=== PATIENT | female | born 1990 | race Caucasian/White ===

== ENCOUNTER 2020-08-10 20:21 | Observation (INO) ==
[2020-08-10] MEDS ORDERED: SODIUM CHLORIDE 0.9% 1000ML 1,000 ML IV ONE (20:44)
[2020-08-10] MEDS ORDERED: KETOROLAC TROMETHAMINE 15 MG/ML VIAL IV STA (21:03)
[2020-08-10] MEDS ORDERED: ACETAMINOPHEN 1,000 MG/100 ML VIAL IV STA (21:03)
[2020-08-10 21:10] LABS: Appearance Urine Clear (Clear); Bilirubin Urine Negative (Negative); Blood Urine Negative (Negative); Color Urine Yellow; Glucose Urine UA Negative (Negative); Ketones Urine 1+ (Negative); Leukocyte Esterase Urine Negative (Negative); Nitrite Urine Negative (Negative); Protein Urine Negative (Negative); Specific Gravity Urine 1.017 (1.000-1.030); Urobilinogen Urine Negative (Negative)
[2020-08-10 21:10] LABS: Basophils # (auto) 0.02 K/uL (0-0.2); Basophils % (auto) 0.2 %; Eosinophils # (auto) 0.08 K/uL (0-0.5); Eosinophils % (auto) 0.6 %; Hematocrit (blood only) 38.6 % (37-47); Hemoglobin 13.4 g/dL (12.0-16.0); Immature Granulocytes # (auto) 0.03 K/uL (0.00-0.02); Immature Granulocytes % (auto) 0.2 %; Lymphocytes # (auto) 2.57 K/uL (1.2-3.4); Lymphocytes % (auto) 19.8 %; Mean Corpuscular Hemoglobin 31.1 pg (25-34); Mean Corpuscular Hgb Conc 34.7 g/dL (32-36); Mean Corpuscular Volume 89.6 fL (80-100); Mean Platelet Volume 10.2 fL (7.4-10.4); Monocytes # (auto) 0.78 K/uL (0.11-0.59); Neutrophils # (auto) 9.48 K/uL (1.4-6.5); Neutrophils % (auto) 73.2 %; Platelet Count 318 K/uL (130-400); RDW Coefficient of Variation 11.9 % (11.5-14.5); Red Blood Count 4.31 M/uL (4.2-5.4); White Blood Count 12.96 K/uL (4.8-10.8)
[2020-08-10 21:25] LABS: Albumin Level 4.2 gm/dl (3.4-5.0); BUN Creatinine Ratio 16.7 (10-20); Bilirubin Direct 0.2 mg/dl (0-0.2); Calcium 9.5 mg/dl (8.5-10.1); Creatinine Clr Calc Pharmacy 90.6 ml/min; Est GFR (African American) 106.6; Est GFR (Non-African American) 91.9; Potassium 3.9 mmol/L (3.5-5.1); Pregnancy Test, Serum Negative (Negative)
[2020-08-10 21:27] LABS: Albumin Globulin Ratio 1.2 (0.9-2); Bilirubin,Total 0.8 mg/dl (0.2-1); Globulin 3.6 gm/dl (2.5-4.0); Total Protein 7.8 gm/dl (6.4-8.2)
[2020-08-10] MEDS ORDERED: MoRPHine SULFATE 4 MG/ML 1 ML CARP\\VIAL IV STA (22:47)
[2020-08-10] MEDS ORDERED: IOVERSOL 100ml IV ONE (23:32)
--- NOTE | 2020-08-10 23:43 | Emergency Department Note ---
Impression & Plan Intra-abdominal fluid collection, Abdominal pain, Tenderness of female pelvic organs ED Provider Note NAME: CINTHYA CURRY AGE: 30 SEX: F ARRIVES VIA: Walk-In INFORMANT: Patient, ED PROVIDER(S): Sathya Beaver MD CHIEF COMPLAINT: Abdominal pain PLAN: Disposition: Admit MEDICAL DECISION MAKING: The patient is a 30-year-old woman who presents emergency department with complaints of lower abdominal pain but with also more generalized pain that began this morning which she thought was gas but not improved even after moving her bowels with episodes of spasm where she feels her pain was so severe that she passed out briefly in her mother's arms. She does admit to having premenstrual pain with her menstrual cycle but denies ever having pain this severe. Her last menstrual cycle was several weeks ago. She denies concerns for . Prior to today she denies any fevers, chills, cough, congestion, nausea, vomiting, diarrhea, urinary symptoms. She does report the pain gets worse when lying flat and feels better when she stands up. On arrival the patient is uncomfortable and mild pain distress, afebrile with heart rate in the 100s and otherwise with stable vital signs. She appears clinically dry. Her abdominal exam is limited due to her inability to lie flat due to the pain where she begins to hyperventilate. Feels she is able to give her self relief by standing up. Abdominal exam with the patient sitting does reveal generalized abdominal tenderness greatest in the lower abdomen without guarding or rebound. WBC 12.9 is nonspecific. H/H and platelets within normal limits. Chemistry without metabolic acidosis. Electrolytes LFTs unremarkable. Lipase within normal limits. Qualitative serum hCG negative. UA without evidence of infection. CT done pelvis was ordered and unfortunately due to the patient's pain particularly when lying supine despite receiving IV Tylenol and Toradol was too much for her to tolerate the scan. She was subsequently medicated with IV morphine which did allow her to tolerate the CT scan. I did review the CT results with the [facility] radiologist, Dr. Watkins. Moderate-la rge free fluid with dense material in the pelvis, possible hemorrhagic or proteinaceous material with rim enhancing structure in the right adnexa with wall defect. Given negative hcg ruptured hemorrhagic cyst most likely. Patient previously was seen by [facility] in the past and so case was reviewed with Dr. Ruth Vu Career Guidance Counselor on-call who reviewed images and evaluated the patient at the beside with plan for admission and possible OR if H/H change. Patient was in agreeament with plan. I updated her over the phone. Triage Nursing notes reviewed and agree them. Prior medical records reviewed Vital Signs: reviewed and remarkable for Tachycardia. Differential diagnosis: Appendicitis, ovarian cyst, ovarian torsion, ectopic , TOA, PID, infections, diverticulitis, UTI, obstruction, mesenteric ischemia, aortic pathology, inflammatory bowel disease, renal colic, PUD, pancreatitis, biliary pathology, hernia, volvulus, constipation, as well as other pathologies. ER treatment provided: See below. Diagnostics interpreted by me: ECG: Sinus tachycardia, 107 bpm, no ectopy, no overt ST elevation or depression. Cardiac Monitoring: An order for continuous cardiac monitoring was placed and demonstrated Sinus tachycardia, 107 bpm, no ectopy. Laboratory studies: See below Imaging studies: CXR: Negative for acute cardiopulmonary process per my preliminary review. [facility] Preliminary Findings Only See Final Report For Complete Findings CT ABDOMEN & PELVIS With Contrast: Moderate-large free fluid with dense material in the pelvis, possible hemorrhagic or proteinaceous material. Rim enhancing structure in the right adnexa with wall defect, raising possibility of a ruptured hemorrhagic cyst. Other etiologies not excluded. Correlate with test to exclude possibility of ruptured ectopic. Fluid and air in the small bowel, query ileus or enteritis. Visualized portions of the appendix appear normal in caliber. Mildly thickened underdistended bladder. Radiologist: Gabrielle Watkins M.D. Study ready at 23:37 and initial results transmitted at 23:47 Consultation(s): Dr. Ruth Vu Career Guidance Counselor on-call HPI: The patient is a 30-year-old woman who presents emergency department with complaints of lower abdominal pain but with also more generalized pain that began this morning which she thought was gas but not improved even after moving her bowels with episodes of spasm where she feels her pain was so severe that she passed out briefly in her mother's arms. She does admit to having premenstrual pain with her menstrual cycle but denies ever having pain this severe. Her last menstrual cycle was several weeks ago. She denies concerns for . Prior to today she denies any fevers, chills, cough, congestion, nausea, vomiting, diarrhea, urinary symptoms. She does report the pain gets worse when lying flat and feels better when she stands up. ROS: See above HPI for pertinent positives & negatives. A total of 10 systems reviewed and were otherwise negative. PAST MEDICAL HISTORY:See Below PAST SURGICAL HISTORY:See Below FAMILY HISTORY:See Below SOCIAL HISTORY:See Below HOME MEDICATIONS:See Below ALLERGIES:See Below VITALS:See Below PHYSICAL EXAMINATION: GENERAL: Awake, alert, uncomfortable-appearing, in mild pain distress HENT: Normocephalic, atraumatic. Oropharynx with dry mucous membranes and otherwise unremarkable. EYES: Normal conjunctiva. Sclera non-icteric. NECK: Supple. No nuchal rigidity. FROM. No JVD. RESPIRATORY: Clear to auscultation. CARDIAC: Tachycardic rate, normal rhythm. Extremities warm and well perfused. Pulses equal. ABDOMEN: Abdominal exam with the patient sitting does reveal generalized abdominal tenderness greatest in the lower abdomen without guarding or rebound. RECTAL: Deferred. MUSCULOSKELETAL: Chest examination reveals no tenderness. The back is symmetrical on inspection without obvious abnormality. There is no CVA tenderness to palpation. No joint edema. LOWER EXTREMITIES: Calves are equal size bilaterally and non-tender. No edema. No discoloration. NEURO: Normal sensorium. No sensory or motor deficits noted. SKIN: No rash or jaundice noted. ED COURSE: Critical Care: I have personally spent greater than 35 minutes of critical care time in the direct management of this patient. This includes bedside care, interpretation of diagnostic studies, and testing, discussion with consultants, patient, and family members, and other required patient management activities. This 35 minutes is in excess of all separately billable procedures. Sathya Beaver MD Past Med/Surg History Medical History No significant past medical history Surgical History No significant past surgical history Social History Smoking Status: Former smoker Feels Safe at Home: Yes Allergies Allergies Allergy/AdvReac Type Severity Reaction Status Date / Time No Known Allergies Allergy Unverified 08/10/20 21:56 Home Meds Home Medications Medication Instructions Recorded Confirmed cholecalciferol (vitamin D3) 75 mcg PO DAILY 08/10/20 08/10/20 [Vitamin D3] ibuprofen 400 mg PO Q6H PRN 08/10/20 08/10/20 Results & Data (ED) Vital Signs Vital Signs - 24 hr 08/10/20 20:21 08/10/20 20:22 08/10/20 21:20 Temperature 36.6 C Temperature Source Oral Pulse Rate 90 100 H 101 H Pulse Rhythm Regular Respiratory Rate 19 16 Respiratory Effort / Characteristics Non-Labored Respiratory Depth Normal Blood Pressure 115/79 135/99 Blood Pressure Mean 91 103 Pulse Oximetry 99 100 99 Oxygen Delivery Method Room Air Room Air Sepsis Recent Fever Within 48 Hours No Sepsis New/Unexplained Change in Mental Status No Sepsis Action Taken by Nursing No Action Required 08/10/20 21:30 08/10/20 21:40 08/10/20 22:40 Temperature Temperature Source Pulse Rate 115 H 86 98 H Pulse Rhythm Respiratory Rate 16 16 16 Respiratory Effort / Characteristics Respiratory Depth Blood Pressure 127/92 127/99 Blood Pressure Mean 103 103 Pulse Oximetry 96 100 100 Oxygen Delivery Method Sepsis Recent Fever Within 48 Hours Sepsis New/Unexplained Change in Mental Status Sepsis Action Taken by Nursing 08/10/20 23:00 Temperature Temperature Source Pulse Rate 93 H Pulse Rhythm Respiratory Rate 19 Respiratory Effort / Characteristics Respiratory Depth Blood Pressure 123/91 Blood Pressure Mean 95 Pulse Oximetry 100 Oxygen Delivery Method Sepsis Recent Fever Within 48 Hours Sepsis New/Unexplained Change in Mental Status Sepsis Action Taken by Nursing Laboratory Data Attestation: I reviewed the patient's lab results. Result diagrams: 08/11/20 00:32 08/10/20 20:42 Lab Results 08/10/20 08/10/20 08/10/20 Range/Units 20:12 20:42 20:42 WBC 12.96 H (4.8-10.8) K/uL RBC 4.31 (4.2-5.4) M/uL Hgb 13.4 (12.0-16.0) g/dL Hct 38.6 (37-47) % MCV 89.6 (80-100) fL MCH 31.1 (25-34) pg MCHC 34.7 (32-36) g/dL RDW Std Deviation 39.0 (36.4-46.3) fL RDW Coeff of [place] 11.9 (11.5-14.5) % Plt Count 318 (130-400) K/uL MPV 10.2 (7.4-10.4) fL Immature Gran % (Auto) 0.2 % Neut % (Auto) 73.2 % Lymph % (Auto) 19.8 % [place] % (Auto) 6.0 % Eos % (Auto) 0.6 % Baso % (Auto) 0.2 % Neut # (Auto) 9.48 H (1.4-6.5) K/uL Lymph # (Auto) 2.57 (1.2-3.4) K/uL [place] # (Auto) 0.78 H (0.11-0.59) K/uL Eos # (Auto) 0.08 (0-0.5) K/uL Baso # (Auto) 0.02 (0-0.2) K/uL Immature Gran # (Auto) 0.03 H (0.00-0.02) K/uL Sodium 135 L (136-145) mmol/L Potassium 3.9 (3.5-5.1) mmol/L Chloride 104 (98-107) mmol/L Carbon Dioxide 23 (21-32) mmol/L Anion Gap 8.0 (3-11) BUN 14 (7-18) mg/dl Creatinine 0.85 (0.6-1.2) mg/dl Est Cr Clr Drug Dosing 90.6 ml/min Est GFR ( Amer) 106.6 Est GFR (Non-Af Amer) 91.9 BUN/Creatinine Ratio 16.7 (10-20) Glucose 117 H (70-99) mg/dl Calcium 9.5 (8.5-10.1) mg/dl Total Bilirubin 0.8 (0.2-1) mg/dl Direct Bilirubin 0.2 (0-0.2) mg/dl AST 17 (15-37) U/L ALT 27 (12-78) U/L Alkaline Phosphatase 51 (45-117) U/L Total Protein 7.8 (6.4-8.2) gm/dl Albumin 4.2 (3.4-5.0) gm/dl Globulin 3.6 (2.5-4.0) gm/dl Albumin/Globulin Ratio 1.2 (0.9-2) Lipase 136 (73-393) U/L HCG, Qual (Negative) Urine Color Yellow Urine Appearance Clear (Clear) Urine pH 5.0 (4.5-7.5) Ur Specific [place] 1.017 (1.000-1.030) Urine Protein Negative (Negative) Urine Glucose (UA) Negative (Negative) Urine Ketones 1+ H (Negative) Urine Blood Negative (Negative) Urine Nitrite Negative (Negative) Urine Bilirubin Negative (Negative) Urine Urobilinogen Negative (Negative) Ur Leukocyte Esterase Negative (Negative) COVID-19 Eval Order SARS-CoV-2 (PCR) (Negative) Influenza Type A (PCR) (Neg) Influenza Type B (PCR) (Neg) RSV (RT-PCR) (Neg) Blood Type Antibody Screen 08/10/20 08/10/20 08/11/20 Range/Units 20:42 23:52 00:32 WBC (4.8-10.8) K/uL RBC (4.2-5.4) M/uL Hgb 10.1 L D (12.0-16.0) g/dL Hct 29.2 L (37-47) % MCV (80-100) fL MCH (25-34) pg MCHC (32-36) g/dL RDW Std Deviation (36.4-46.3) fL RDW Coeff of Geovany (11.5-14.5) % Plt Count (130-400) K/uL MPV (7.4-10.4) fL Immature Gran % (Auto) % Neut % (Auto) % Lymph % (Auto) % [place] % (Auto) % Eos % (Auto) % Baso % (Auto) % Neut # (Auto) (1.4-6.5) K/uL Lymph # (Auto) (1.2-3.4) K/uL [place] # (Auto) (0.11-0.59) K/uL Eos # (Auto) (0-0.5) K/uL Baso # (Auto) (0-0.2) K/uL Immature Gran # (Auto) (0.00-0.02) K/uL Sodium (136-145) mmol/L Potassium (3.5-5.1) mmol/L Chloride (98-107) mmol/L Carbon Dioxide (21-32) mmol/L Anion Gap (3-11) BUN (7-18) mg/dl Creatinine (0.6-1.2) mg/dl Est Cr Clr Drug Dosing ml/min Est GFR ( Amer) Est GFR (Non-Af Amer) BUN/Creatinine Ratio (10-20) Glucose (70-99) mg/dl Calcium (8.5-10.1) mg/dl Total Bilirubin (0.2-1) mg/dl Direct Bilirubin (0-0.2) mg/dl AST (15-37) U/L ALT (12-78) U/L Alkaline Phosphatase (45-117) U/L Total Protein (6.4-8.2) gm/dl Albumin (3.4-5.0) gm/dl Globulin (2.5-4.0) gm/dl Albumin/Globulin Ratio (0.9-2) Lipase (73-393) U/L HCG, Qual Negative (Negative) Urine Color Urine Appearance (Clear) Urine pH (4.5-7.5) Ur Specific [place] (1.000-1.030) Urine Protein (Negative) Urine Glucose (UA) (Negative) Urine Ketones (Negative) Urine Blood (Negative) Urine Nitrite (Negative) Urine Bilirubin (Negative) Urine Urobilinogen (Negative) Ur Leukocyte Esterase (Negative) COVID-19 Eval Order SARS-CoV-2 (PCR) (Negative) Influenza Type A (PCR) (Neg) Influenza Type B (PCR) (Neg) RSV (RT-PCR) (Neg) Blood Type O Positive Antibody Screen NEGATIVE 08/11/20 08/11/20 Range/Units 01:00 01:00 WBC (4.8-10.8) K/uL RBC (4.2-5.4) M/uL Hgb (12.0-16.0) g/dL Hct (37-47) % MCV (80-100) fL MCH (25-34) pg MCHC (32-36) g/dL RDW Std Deviation (36.4-46.3) fL RDW Coeff of Geovany (11.5-14.5) % Plt Count (130-400) K/uL MPV (7.4-10.4) fL Immature Gran % (Auto) % Neut % (Auto) % Lymph % (Auto) % [place] % (Auto) % Eos % (Auto) % Baso % (Auto) % Neut # (Auto) (1.4-6.5) K/uL Lymph # (Auto) (1.2-3.4) K/uL [place] # (Auto) (0.11-0.59) K/uL Eos # (Auto) (0-0.5) K/uL Baso # (Auto) (0-0.2) K/uL Immature Gran # (Auto) (0.00-0.02) K/uL Sodium (136-145) mmol/L Potassium (3.5-5.1) mmol/L Chloride (98-107) mmol/L Carbon Dioxide (21-32) mmol/L Anion Gap (3-11) BUN (7-18) mg/dl Creatinine (0.6-1.2) mg/dl Est Cr Clr Drug Dosing ml/min Est GFR ( Amer) Est GFR (Non-Af Amer) BUN/Creatinine Ratio (10-20) Glucose (70-99) mg/dl Calcium (8.5-10.1) mg/dl Total Bilirubin (0.2-1) mg/dl Direct Bilirubin (0-0.2) mg/dl AST (15-37) U/L ALT (12-78) U/L Alkaline Phosphatase (45-117) U/L Total Protein (6.4-8.2) gm/dl Albumin (3.4-5.0) gm/dl Globulin (2.5-4.0) gm/dl Albumin/Globulin Ratio (0.9-2) Lipase (73-393) U/L HCG, Qual (Negative) Urine Color Urine Appearance (Clear) Urine pH (4.5-7.5) Ur Specific [place] (1.000-1.030) Urine Protein (Negative) Urine Glucose (UA) (Negative) Urine Ketones (Negative) Urine Blood (Negative) Urine Nitrite (Negative) Urine Bilirubin (Negative) Urine Urobilinogen (Negative) Ur Leukocyte Esterase (Negative) COVID-19 Eval Order CovFluRsv at [facility] SARS-CoV-2 (PCR) NEGATIVE (Negative) Influenza Type A (PCR) Negative (Neg) Influenza Type B (PCR) Negative (Neg) RSV (RT-PCR) Negative (Neg) Blood Type Antibody Screen Administered Medications Discontinued Medications Sodium Chloride (Nss 1000ml) 1,000 mls @ 999 mls/hr IV .Q1H1M ONE Stop: 08/10/20 21:44 Last Infusion: 08/10/20 22:32 Dose: 0 mls/hr Documented by: [id number] Admin: 08/10/20 21:12 Dose: 999 mls/hr Documented by: [id number] Acetaminophen (Ofirmev) 1,000 mg in 100 mls @ 400 mls/hr IV NOW STA Stop: 08/10/20 21:17 Last Infusion: 08/10/20 21:46 Dose: 0 mls/hr Documented by: [id number] Admin: 08/10/20 21:12 Dose: 400 mls/hr Documented by: [id number] Sodium Chloride (Nss 1000ml) 1,000 mls @ 125 mls/hr IV .Q8H DANNIE Stop: 09/10/20 00:29 Last Admin: 08/11/20 00:34 Dose: 125 mls/hr Documented by: [id number] Cefazolin Sodium (Ancef 2000mg) 2,000 mg in 15 mls @ 3.75 mls/min IV NOW STA Stop: 08/11/20 01:12 Last Admin: 08/11/20 02:40 Dose: 3.75 mls/min Documented by: [id number] Ioversol (Ioversol 100ml) 92 ml IV ONCE ONE Stop: 08/10/20 23:33 Last Admin: 08/10/20 23:32 Dose: 92 ml Documented by: [id number] Ketorolac Tromethamine (Ketorolac Tromethamine 15 Mg/Ml Vial) 15 mg IV NOW STA Stop: 08/10/20 21:04 Last Admin: 08/10/20 21:11 Dose: 15 mg Documented by: [id number] Morphine Sulfate (Morphine Sulfate 4 Mg/Ml 1 Ml Carp\Vial) 4 mg IV NOW STA Stop: 08/10/20 22:48 Last Admin: 08/10/20 22:51 Dose: 4 mg Documented by: [id number] Morphine Sulfate (Morphine Sulfate 4 Mg/Ml 1 Ml Carp\Vial) 4 mg IV Q2H PRN PRN Reason: Pain Stop: 08/25/20 00:16 Last Admin: 08/11/20 00:34 Dose: 4 mg Documented by: [id number] Ondansetron HCl (Ondansetron Inj 2 Mg/Ml 2 Ml Vial) 4 mg IV NOW STA Stop: 08/11/20 00:18 Last Admin: 08/11/20 00:34 Dose: 4 mg Documented by: [id number] Discharge Plan Visit Data Chief Complaint: Abdominal Pain Stated Complaint: ABD PAIN ED Provider: Sathya Beaver Discharge Problem: Intra-abdominal fluid collection, Abdominal pain, Tenderness of female pelvic organs Patient Disposition: Admitted As Inpatient Discharge Instructions Interventions: ED Discharge Assessment Last Done: 08/11/20 02:00 Discharge Problem: Abdominal pain Qualifiers: Abdominal location: generalized Qualified Code(s): R10.84 - Generalized abdominal pain
[2020-08-11] MEDS ORDERED: MoRPHine SULFATE 4 MG/ML 1 ML CARP\\VIAL IV PRN (00:17)
[2020-08-11] MEDS ORDERED: ONDANSETRON INJ 2 MG/ML 2 ML VIAL IV STA (00:17)
[2020-08-11] MEDS ORDERED: SODIUM CHLORIDE 0.9% 1000ML 1,000 ML IV SCH (00:30)
--- NOTE | 2020-08-11 00:42 | OB/GYN Consultation ---
Date of Consultation August 11, 2020 Assessment & Plan (1) Abdominal pain: 30-year-old G0 female with abdominal and pelvic pain and lightheadedness with ambulation. Vital signs stable afebrile CT of abdomen suggesting fluid collection in the pelvis and abdomen suggesting hemorrhagic corpus luteum cyst H&H drop in 4 hours and patient is symptomatic upon ambulation and had acute abdomen Given their history, physical findings and drop in H&H and large amount of fluid in pelvis and abdomen for CT scan I recommended her surgical exploration for hemorrhagic corpus luteum cyst. Recommended procedure as examined under anesthesia, operative laparoscopy, suction of blood clots from pelvis, possible fulguration/coagulation of hemorrhagic ovarian cysts and possible oophorectomy. Patient understands our goal is to save both ovaries but may need oophorectomy if bleeding persists. Patient understands the risk of surgery including risk of anesthesia, bleeding, infection, injury to surrounding organs like bowels, bladder, ureters and more surgeries to correct complications. She signed an informed consent. (2) Tenderness of female pelvic organs: (3) Intra-abdominal fluid collection: History of Present Illness History of Present Illness Patient is a 30-year-old G0 female who presented to the ER with diffuse abdominal pain started yesterday morning at around 9 AM. It started as lower abdominal /pelvic pain and then it went up all over the abdomen. It is sharp and gets worse with movement and laying down and it can be up to 10 out of 10 in intensity. It causes upper abdominal pain under ribs when she takes deep breath. She has been dizzy with lightheadedness when she stood up. She states she passed out twice. Nausea+ She gets regular periods every month. They last for 3 days and she has severe pain for 1 day. She had it 3 weeks ago, now in luteal phase of her cycle. She has been sexually active with same partner for 4 years and they have been using condoms only for contraception. Never failed and never been . Last SI was 3 nights ago. No history of STDs. She denies h/o pelvic pain vaginal discharge or itching. No fever/ chills/ CP/SOB She had CT scan here which showed moderate to large amount of fluid collection in pelvis and abdomen and rim-enhancing ovarian cyst suggesting hemorrhagic corpus luteum cyst. Her H&H was stable on admission. She is getting a repeat one now. Allergies Allergy/AdvReac Type Severity Reaction Status Date / Time No Known Allergies Allergy Unverified 08/10/20 21:56 Home Medications Medication Instructions Recorded Confirmed Type cholecalciferol (vitamin D3) 75 mcg PO DAILY 08/10/20 08/10/20 History [Vitamin D3] ibuprofen 400 mg PO Q6H PRN 08/10/20 08/10/20 History Patient History Social History Smoking Status: Former smoker Feels Safe at Home: Yes Review of Systems Review of Systems: All systems reviewed & are unremarkable except as noted in HPI & below Physical Exam Constitutional: WD/WN, vitals as above well developed, well nourished and + in distress (with pain and light headed with standing.) Gastrointestinal (Abdomen): Inspection/Auscultation: abdomen normal to inspection Percussion/Palpation: + abdomen tender (diffuse tenderness,more on RLQ and RUQ ), + guarding, + abdomen rigid (on RUQ) and abdomen soft Genitourinary: no vaginal lesions, no adnexal mass normal external appearance Speculum/Bimanual Exam: normal appearance of the vagina, normal appearance of the cervix, + cervical tenderness (CMT present), + abnormal adnexa, + adnexal tenderness, + cervical motion tenderness and + adnexae not mobile Results & Data (MN) Vital Signs (Past 12 Hours) Vital Signs Temp Pulse Resp BP Pulse Ox 08/10/20 23:00 93 H 19 123/91 100 08/10/20 22:40 98 H 16 127/99 100 08/10/20 21:40 86 16 100 08/10/20 21:30 115 H 16 127/92 96 08/10/20 21:20 101 H 16 135/99 99 08/10/20 20:22 36.6 C 100 H 19 115/79 100 08/10/20 20:21 90 99 Laboratory Results Lab Results 08/10/20 08/10/20 08/10/20 Range/Units 20:12 20:42 20:42 WBC 12.96 H (4.8-10.8) K/uL RBC 4.31 (4.2-5.4) M/uL Hgb 13.4 (12.0-16.0) g/dL Hct 38.6 (37-47) % MCV 89.6 (80-100) fL MCH 31.1 (25-34) pg MCHC 34.7 (32-36) g/dL RDW Std Deviation 39.0 (36.4-46.3) fL RDW Coeff of Geovany 11.9 (11.5-14.5) % Plt Count 318 (130-400) K/uL MPV 10.2 (7.4-10.4) fL Immature Gran % (Auto) 0.2 % Neut % (Auto) 73.2 % Lymph % (Auto) 19.8 % [place] % (Auto) 6.0 % Eos % (Auto) 0.6 % Baso % (Auto) 0.2 % Neut # (Auto) 9.48 H (1.4-6.5) K/uL Lymph # (Auto) 2.57 (1.2-3.4) K/uL [place] # (Auto) 0.78 H (0.11-0.59) K/uL Eos # (Auto) 0.08 (0-0.5) K/uL Baso # (Auto) 0.02 (0-0.2) K/uL Immature Gran # (Auto) 0.03 H (0.00-0.02) K/uL Sodium 135 L (136-145) mmol/L Potassium 3.9 (3.5-5.1) mmol/L Chloride 104 (98-107) mmol/L Carbon Dioxide 23 (21-32) mmol/L Anion Gap 8.0 (3-11) BUN 14 (7-18) mg/dl Creatinine 0.85 (0.6-1.2) mg/dl Est Cr Clr Drug Dosing 90.6 ml/min Est GFR ( Amer) 106.6 Est GFR (Non-Af Amer) 91.9 BUN/Creatinine Ratio 16.7 (10-20) Glucose 117 H (70-99) mg/dl Calcium 9.5 (8.5-10.1) mg/dl Total Bilirubin 0.8 (0.2-1) mg/dl Direct Bilirubin 0.2 (0-0.2) mg/dl AST 17 (15-37) U/L ALT 27 (12-78) U/L Alkaline Phosphatase 51 (45-117) U/L Total Protein 7.8 (6.4-8.2) gm/dl Albumin 4.2 (3.4-5.0) gm/dl Globulin 3.6 (2.5-4.0) gm/dl Albumin/Globulin Ratio 1.2 (0.9-2) Lipase 136 (73-393) U/L HCG, Qual (Negative) Urine Color Yellow Urine Appearance Clear (Clear) Urine pH 5.0 (4.5-7.5) Ur Specific [place] 1.017 (1.000-1.030) Urine Protein Negative (Negative) Urine Glucose (UA) Negative (Negative) Urine Ketones 1+ H (Negative) Urine Blood Negative (Negative) Urine Nitrite Negative (Negative) Urine Bilirubin Negative (Negative) Urine Urobilinogen Negative (Negative) Ur Leukocyte Esterase Negative (Negative) 08/10/20 Range/Units 20:42 WBC (4.8-10.8) K/uL RBC (4.2-5.4) M/uL Hgb (12.0-16.0) g/dL Hct (37-47) % MCV (80-100) fL MCH (25-34) pg MCHC (32-36) g/dL RDW Std Deviation (36.4-46.3) fL RDW Coeff of Geovany (11.5-14.5) % Plt Count (130-400) K/uL MPV (7.4-10.4) fL Immature Gran % (Auto) % Neut % (Auto) % Lymph % (Auto) % [place] % (Auto) % Eos % (Auto) % Baso % (Auto) % Neut # (Auto) (1.4-6.5) K/uL Lymph # (Auto) (1.2-3.4) K/uL [place] # (Auto) (0.11-0.59) K/uL Eos # (Auto) (0-0.5) K/uL Baso # (Auto) (0-0.2) K/uL Immature Gran # (Auto) (0.00-0.02) K/uL Sodium (136-145) mmol/L Potassium (3.5-5.1) mmol/L Chloride (98-107) mmol/L Carbon Dioxide (21-32) mmol/L Anion Gap (3-11) BUN (7-18) mg/dl Creatinine (0.6-1.2) mg/dl Est Cr Clr Drug Dosing ml/min Est GFR ( Amer) Est GFR (Non-Af Amer) BUN/Creatinine Ratio (10-20) Glucose (70-99) mg/dl Calcium (8.5-10.1) mg/dl Total Bilirubin (0.2-1) mg/dl Direct Bilirubin (0-0.2) mg/dl AST (15-37) U/L ALT (12-78) U/L Alkaline Phosphatase (45-117) U/L Total Protein (6.4-8.2) gm/dl Albumin (3.4-5.0) gm/dl Globulin (2.5-4.0) gm/dl Albumin/Globulin Ratio (0.9-2) Lipase (73-393) U/L HCG, Qual Negative (Negative) Urine Color Urine Appearance (Clear) Urine pH (4.5-7.5) Ur Specific [place] (1.000-1.030) Urine Protein (Negative) Urine Glucose (UA) (Negative) Urine Ketones (Negative) Urine Blood (Negative) Urine Nitrite (Negative) Urine Bilirubin (Negative) Urine Urobilinogen (Negative) Ur Leukocyte Esterase (Negative) (1) Abdominal pain Abdominal location: generalized Qualified Code(s): R10.84 - Generalized abdominal pain
[2020-08-11 00:45] LABS: Hematocrit (blood only) 29.2 % (37-47); Hemoglobin 10.1 g/dL (12.0-16.0)
[2020-08-11] MEDS ORDERED: ceFAZolin 2000MG 2,000 MG/15 ML SYR IV STA (01:09)
[2020-08-11] MEDS ORDERED: PROPOFOL IV EMULSION 10 MG/ML 20 ML VIAL IV ONE ×2 (01:31→04:35)
[2020-08-11] MEDS ORDERED: ONDANSETRON INJ 2 MG/ML 2 ML VIAL ONE (01:31)
[2020-08-11] MEDS ORDERED: ROCURONIUM BROMIDE 10 MG/ML 5 ML VIAL IV ONE (01:31)
[2020-08-11] MEDS ORDERED: GLYCOPYRROLATE 0.2 MG/ML VIAL ONE (01:31)
[2020-08-11] MEDS ORDERED: DEXAMETHASONE SOD INJ 4 MG/ML VIAL ONE (01:31)
[2020-08-11] MEDS ORDERED: NEOSTIGMINE METHYLSULFATE 5 MG/5 ML SYR ONE (01:31)
[2020-08-11] MEDS ORDERED: LIDOCAINE HCL 2% 2 ML VIAL/AMP(20MG/ML) INFIL ONE (01:31)
--- NOTE | 2020-08-11 01:31 | Anesthesiology Consultation ---
Date of Service August 11, 2020 Assessment & Plan (1) Encounter for pre-operative examination: Chart Review Chart Review: Acceptable Risk for Surgery History Height/Weight Height: 5 ft 6 in Weight: 63.2 kg Allergies Allergy/AdvReac Type Severity Reaction Status Date / Time No Known Allergies Allergy Unverified 08/10/20 21:56 Medications Home Medications Medication Instructions Recorded Confirmed Last Taken cholecalciferol (vitamin D3) 75 mcg PO DAILY 08/10/20 08/10/20 Unknown [Vitamin D3] ibuprofen 400 mg PO Q6H PRN 08/10/20 08/10/20 08/10/20 15:30 Active Medications Generic Name Dose Route Start Last Admin Trade Name Freq PRN Reason Stop Dose Admin Sodium Chloride 1,000 mls @ 125 mls/hr 08/11/20 00:30 08/11/20 00:34 Nss 1000ml IV 09/10/20 00:29 125 mls/hr .Q8H DANNIE Administration Morphine Sulfate 4 mg 08/11/20 00:17 08/11/20 00:34 Morphine Sulfate 4 Mg/Ml 1 Ml Carp\Vial IV 08/25/20 00:16 4 mg Q2H PRN Administration Pain NPO Date Last Intake of Fluids: 08/10/20 Past Medical History Medical History (Updated 08/11/20 @ 01:31 by Antonio Rose MD) No significant past medical history Past Surgical History Surgical History (Updated 08/11/20 @ 01:31 by Antonio Rose MD) No significant past surgical history Social History Smoking Status: Former smoker Physical Exam Vital Signs Last Vital Signs Temp 36.6 C 08/10/20 20:22 Pulse 93 H 08/10/20 23:00 Resp 19 08/10/20 23:00 BP 123/91 08/10/20 23:00 Pulse Ox 100 08/10/20 23:00 Testing Laboratory Results 08/11/20 00:32 08/10/20 20:42 Urine Color Yellow 08/10/20 20:12 Urine Appearance Clear (Clear) 08/10/20 20:12 Urine pH 5.0 (4.5-7.5) 08/10/20 20:12 Ur Specific [place] 1.017 (1.000-1.030) 08/10/20 20:12 Urine Protein Negative (Negative) 08/10/20 20:12 Urine Glucose (UA) Negative (Negative) 08/10/20 20:12 Urine Ketones 1+ (Negative) H 08/10/20 20:12 Urine Nitrite Negative (Negative) 08/10/20 20:12 Ur Leukocyte Esterase Negative (Negative) 08/10/20 20:12 Blood Type O Positive 08/10/20 23:52 Antibody Screen NEGATIVE 08/10/20 23:52 serum hcg negative covid pending
[2020-08-11] MEDS ORDERED: MIDAZOLAM HCL 1 MG/ML 2ML VIAL ONE (01:32)
[2020-08-11] MEDS ORDERED: fentaNYL citrate 100 MCG/2 ML VIAL ONE ×2 (01:32→03:03)
[2020-08-11] MEDS ORDERED: BUPIVACAINE 0.5 % 5 MG/1 ML MPF 30ML VIAL ONE (01:40)
[2020-08-11] MEDS ORDERED: EpINEphrine HCL INJ 1 MG/ML 1ML SYRINGE ONE (01:41)
[2020-08-11 01:50] LABS: Influenza A virus by PCR Negative (Neg); Influenza B virus by PCR Negative (Neg); RSV by PCR Negative (Neg); SARS CoV2 RNA(COVID-19) InHosp NEGATIVE (Negative)
--- NOTE | 2020-08-11 01:56 | Obstetrical Progress Note ---
Date of Service August 11, 2020 Subjective Late entry from 0020 Bed side US: heterogenous fluid collection in pelvis and adnexa, uterus is floating in fluids, there is fluid around right kidney and liver lobe/ RUQ Results & Data ([facility]) Vital Signs (Past 12 Hours) Vital Signs Temp Pulse Resp BP Pulse Ox 08/10/20 23:00 93 H 19 123/91 100 08/10/20 22:40 98 H 16 127/99 100 08/10/20 21:40 86 16 100 08/10/20 21:30 115 H 16 127/92 96 08/10/20 21:20 101 H 16 135/99 99 08/10/20 20:22 36.6 C 100 H 19 115/79 100 08/10/20 20:21 90 99
[2020-08-11] MEDS ORDERED: KETOROLAC 30 MG/ML VIAL IV PRN (02:20)
[2020-08-11] MEDS ORDERED: fentaNYL citrate 100 MCG/2 ML VIAL IV PRN (02:20)
[2020-08-11] MEDS ORDERED: ATROPINE SULFATE 0.1 MG/ML 10ML SYR IV PRN (02:20)
[2020-08-11] MEDS ORDERED: PROMETHAZINE HCL 12.5 MG in SODIUM CHLORIDE 0.9% 50 ML IV PRN (02:20)
[2020-08-11] MEDS ORDERED: ONDANSETRON INJ 2 MG/ML 2 ML VIAL IV PRN ×2 (02:20→04:18)
[2020-08-11] MEDS ORDERED: FLOSEAL HEMOSTATIC MATRIX 10ML TOP ONE (03:37)
[2020-08-11] MEDS ORDERED: SODIUM CHLORIDE 0.9% 250 ML IV PRN (04:17)
[2020-08-11] MEDS ORDERED: MEPERIDINE HCL 50 MG/ML CARP IV PRN (04:18)
[2020-08-11] MEDS ORDERED: IBUPROFEN 600 MG TAB PO PRN (04:18)
--- NOTE | 2020-08-11 04:23 | Post Operative Brief Note ---
Immediate Post Op Note v1 Date of Surgery August 11, 2020 Pre & Post Diagnosis Operation Date: 08/11/20 02:00 Pre-Op Diagnosis: abdominal pain Post-Op Diagnosis: right ovarian hemmorhagic corpus luteum I identified the patient and participated in the time-out.: Yes Procedure Operation Date: 08/11/20 02:00 Actual Procedures p exploratory laparoscopy(Not Applicable) evacuation of intraabdominal/ pelvic blood- Amelia Rojas MD Surgeon Amelia Rojas MD Barrel Cutter OR nurses Estimated Blood Loss 0 (700ml old blood evacuated) Findings Consistent with Post-Op Diagnosis Drains Salazar Catheter
[2020-08-11] MEDS ORDERED: LACTATED RINGER'S 1,000 ML IV SCH (04:30)
[2020-08-11 04:48] LABS: Basophils # (auto) 0.01 K/uL (0-0.2); Basophils % (auto) 0.1 %; Hematocrit (blood only) 27.5 % (37-47); Hemoglobin 9.4 g/dL (12.0-16.0); Immature Granulocytes # (auto) 0.01 K/uL (0.00-0.02); Immature Granulocytes % (auto) 0.1 %; Lymphocytes # (auto) 0.44 K/uL (1.2-3.4); Lymphocytes % (auto) 4.9 %; Mean Corpuscular Hemoglobin 30.9 pg (25-34); Mean Corpuscular Volume 90.5 fL (80-100); Mean Platelet Volume 9.7 fL (7.4-10.4); Monocytes # (auto) 0.18 K/uL (0.11-0.59); Neutrophils # (auto) 8.27 K/uL (1.4-6.5); Neutrophils % (auto) 92.9 %; Platelet Count 205 K/uL (130-400); RDW Coefficient of Variation 12.1 % (11.5-14.5); RDW Standard Deviation 39.6 fL (36.4-46.3); Red Blood Count 3.04 M/uL (4.2-5.4); White Blood Count 8.91 K/uL (4.8-10.8)
--- NOTE | 2020-08-11 04:51 | Anesthesiology Progress Note ---
Date of Service August 11, 2020 Anesthesia Post Procedure Vital Signs Vital Signs: Temp Pulse Pulse Resp BP BP Pulse Ox 08/11/20 04:45 87 15 123/78 100 08/11/20 04:35 94 H 15 131/79 100 08/11/20 04:25 37 C 70 16 135/68 100 08/10/20 23:00 93 H 19 123/91 100 08/10/20 22:40 98 H 16 127/99 100 08/10/20 21:40 86 16 100 08/10/20 21:30 115 H 16 127/92 96 08/10/20 21:20 101 H 16 135/99 99 08/10/20 20:22 36.6 C 100 H 19 115/79 100 08/10/20 20:21 90 99 Pain Intensity Lower Abdomen: Pain Intensity: 6 Transfer of Care Handoff Completed per policy Notes Mental Status: alert / awake / arousable Patient Amnestic to Procedure: Yes Nausea / Vomiting: adequately controlled Pain: adequately controlled Airway Patency, RR, SpO2: stable & adequate BP & HR: stable & adequate Hydration State: stable & adequate Anesthetic Complications: no major complications apparent
[2020-08-11 04:56] LABS: Mean Corpuscular Hgb Conc 34.2 g/dL (32-36)
--- NOTE | 2020-08-11 07:19 | CT Scan Report ---
CT abd pelvis IV con only CLINICAL HISTORY: lower/generalized abd pain COMPARISON STUDY: None. TECHNIQUE: The patient was scanned in a dynamic helical fashion during intravenous administration of 92 cc of Optiray 320. A dose lowering technique was utilized adhering to the principles of ALARA. CT DOSE: 433.82 mGy.cm FINDINGS: Lower chest: The heart is normal in size and configuration, without pericardial effusion. The lung ba ses and pleural spaces are clear. Liver: The contrast-enhanced liver is normal in size, contour, and attenuation. There is no intrahepa tic biliary ductal dilatation. The hepatic veins and portal veins are patent. Gallbladder: Unremarkable. Spleen: Normal in size and attenuation. Pancreas: Unremarkable. Adrenal glands: Unremarkable. Kidneys: There is symmetric renal cortical enhancement. The kidneys are normal in size without hydron ephrosis. Bowel: There are no transition zones to indicate bowel obstruction. The appendix appears normal as vi sualized. There is no evidence of acute diverticulitis. Peritoneum: There is a moderate hemoperitoneum. There is no free intraperitoneal air. Vasculature: The abdominal aorta is normal in course and caliber. Adenopathy: None. Pelvic viscera: There is a large pelvic hematoma. Given the patient's age, a ruptured hemorrhagic ova primo cyst must be considered. There is a regular 24 mm right adnexal cyst, likely ovarian. Skeletal structures: No destructive osseous lesions are seen. IMPRESSION: 1. No evidence of bowel obstruction. No evidence of free air 2. No evidence of acute appendicitis. No evidence of acute diverticulitis 3. Large pelvic hematoma and moderate hemoperitoneum. Given the patient's age, a ruptured hemorrhagic ovarian cyst must be considered. ACT 112: Negative or not required by law. Electronically signed by: Kaushal Castillo M.D. 08/11/2020 7:17 AM
--- NOTE | 2020-08-11 07:39 | XRay Report ---
XR chest 1V portable HISTORY: syncope COMPARISON: None. FINDINGS: The lungs are clear. Cardiac silhouette is normal in size. No pleural effusions. No pneumot horax. IMPRESSION: No acute process. ACT 112: Negative or not required by law. Electronically signed by: Kolton Parker M.D. 08/11/2020 7:37 AM
[2020-08-11] MEDS ORDERED: KETOROLAC TROMETHAMINE 15 MG/ML VIAL IV PRN (07:45)
[2020-08-11] MEDS ORDERED: KETOROLAC TROMETHAMINE 15 MG/ML VIAL ONE (07:50)
[2020-08-11] MEDS ORDERED: SIMETHICONE 40 MG/0.6 ML 30ML PO ONE (07:58)
[2020-08-11] MEDS ORDERED: SIMETHICONE 80 MG CHEW PO PRN (08:01)
[2020-08-11] MEDS ORDERED: SIMETHICONE 80 MG CHEW PO ONE (08:04)
[2020-08-11] MEDS ORDERED: SIMETHICONE 80 MG CHEW PO STA (08:11)
--- NOTE | 2020-08-11 09:10 | Operative Report (OR) ---
DATE OF OPERATION: 08/11/2020 PREOPERATIVE DIAGNOSES: The patient is a 30-year-old G0 female with pelvic and abdominal pain, acute abdomen, decreasing hemoglabinm and hematocrit levels and CT of abdomen suggesting intraabdominal fluid collection suspicious for hemorrhagic corpus luteum cyst. POSTOPERATIVE DIAGNOSES: The patient is a 30-year-old G0 female with pelvic and abdominal pain, acute abdomen, CT of abdomen suggesting intraabdominal fluid collection suspicious for hemorrhagic corpus luteum cyst and 700 mL of old blood clots in the pelvis and abdomen and right ovarian hemorrhagic corpus luteum cyst. PROCEDURE: Exam under anesthesia, laparoscopy, evacuation of blood from abdomen and pelvis and fulguration of right ovarian hemorrhagic corpus luteum cyst. SURGEON: Amelia Rojas MD. [employer]PERVISOR: OR nursing team. ESTIMATED BLOOD LOSS: Minimal. FLUIDS: 700 mL of old blood was evacuated. COMPLICATIONS: None. ANESTHESIA: General. ANESTHESIOLOGIST: Dr. Jackson. DRAINS: Salazar catheter drained 40 mL of urine. FINDINGS: Exam under anesthesia revealed anteverted uterus and adnexal fullness bilaterally and abdominal distention and intraoperative findings blood clots, dark in pelvis and throughout the abdomen including upper abdomen and the pericolic gutters. Normal liver, upper abdomen normal, normal bowels, normal uterus, fallopian tubes and right and left ovary and there was a hemorrhagic corpus luteum cyst on the right ovary and there was a small gunpowder dark lesion in the posterior cul-de-sac suggesting mild endometriosis. DESCRIPTION OF PROCEDURE: The patient was taken to the operating room where general anesthesia was given without difficulty. She was placed in dorsal lithotomy position, prepared and draped in usual sterile fashion. Examination under anesthesia was done with above findings and Salazar catheter was placed into the bladder to drain during surgery. A speculum was placed in the patient's vagina. Cervix was visualized, grasped with single tooth tenaculum and a uterine manipulator was placed into the uterus to provide manipulation during surgery and a single tooth tenaculum was removed, speculum was removed, gloves were changed. Attention was turned to patient's abdomen where a periumbilical skin incision was made and the subcuticular fat tissue was dissected off with the tip of hemostat. Fascia was identified, grasped with 2 Leatha clamps, elevated, and incised with the scalpel. The peritoneum was punctured with the tip of hemostat. As soon as peritoneum was entered, dark red blood and blood clots came out from this incision and then 12 mm Josefina trocar was placed into this incision. The fascial edges were sutured to the trocar and CO2 gas was attached and abdomen was distended with CO2 gas and upon entry into the abdomen, blood clots were seen around the bowel loops and in the pelvis and the patient was placed in the Trendelenburg position. Uterus was brought up to the field and there was dark blood clots behind the uterus and around the adnexa and then 2 more trocars, 5 mm, were placed on the right and left lower quadrants under direct visualization and then these blood clots were suctioned in the pelvis as well as from the upper abdomen. The uterus and the fallopian tubes were normal. Left ovary was normal. Right ovary was slightly enlarged with a small, about 2.5 cm hemorrhagic corpus luteum cyst. There was a small puncture in the middle of the cyst suggesting that it was bleeding from that spots, but there was no active bleeding. After all the clots and blood was suctioned from pelvis and abdomen this right ovary was irrigated and then no active bleeding was found. This edges of the hemorrhagic corpus luteum was coagulated with the Kleppinger and then it was covered with FloSeal and pelvis and abdomen was inspected multiple times and no more blood were seen. The patient was stable throughout the procedure and the procedure was ended. The trocars were removed. CO2 gas was emptied from abdomen. The fascia was repaired with suture of 0 Vicryl at the periumbilical incision and then skin incisions were closed with 4-0 Monocryl in a subcuticular fashion. the manipulator was removed from patient's vagina and cervix. Cervix was hemostatic and all the instruments were removed from patient's vagina. At the end of the procedure, sponge, needle and instrument count were correct x3. The patient tolerated the procedure well and no complications happened. She was given 2 grams of cefazolin before surgery. She was taken to recovery room in stable condition. I was present during whole procedure. I attest to the content of the Intraoperative Record and any orders documented therein. Any exceptions are noted below. JC
[2020-08-11 12:37] LABS: Hematocrit (blood only) 23.8 % (37-47); Hemoglobin 8.1 g/dL (12.0-16.0); Immature Granulocytes # (auto) 0.02 K/uL (0.00-0.02); Immature Granulocytes % (auto) 0.2 %; Lymphocytes # (auto) 0.59 K/uL (1.2-3.4); Lymphocytes % (auto) 7.1 %; Mean Corpuscular Hemoglobin 30.7 pg (25-34); Mean Corpuscular Volume 90.2 fL (80-100); Mean Platelet Volume 9.5 fL (7.4-10.4); Monocytes # (auto) 0.63 K/uL (0.11-0.59); Monocytes % (auto) 7.6 %; Neutrophils # (auto) 7.06 K/uL (1.4-6.5); Neutrophils % (auto) 85.1 %; Platelet Count 200 K/uL (130-400); RDW Coefficient of Variation 12.2 % (11.5-14.5); RDW Standard Deviation 40.5 fL (36.4-46.3); Red Blood Count 2.64 M/uL (4.2-5.4)
[2020-08-11] MEDS: oxyCODONE/ACETAMINOPHEN 5mg/325mg TAB PO PRN ×2 (13:01→15:46)
--- NOTE | 2020-08-12 07:03 | Electrocardiogram Report ---
Test Reason : Blood Pressure : / mmHG Vent. Rate : 107 BPM Atrial Rate : 107 BPM P-R Int : 114 ms QRS Dur : 074 ms QT Int : 318 ms P-R-T Axes : 072 059 030 degrees QTc Int : 424 ms Poor data quality, interpretation may be adversely affected Sinus tachycardia Otherwise normal ECG No previous ECGs available Confirmed by Mitch Bonilla ([id number]) on 08/12/2020 7:03:38 AM Referred By: REFERRED SELF Confirmed By:Mitch Bonilla
--- NOTE | 2020-08-12 08:46 | Discharge Summary (DS) ---
HOSPITAL COURSE: The patient is a 30-year-old who was admitted through the ER for abdominal pain. She was found to have ruptured hemorrhagic cyst. She was taken to the operating room and underwent exploratory laparotomy and evacuation of clots. The patient did well postop and was kept for observation. The patient has done well in recovery and has been discharged home in stable condition. PAST MEDICAL HISTORY: None. PAST SURGICAL HISTORY: None. SOCIAL HISTORY: Denies tobacco, drug or alcohol use. FAMILY HISTORY: Noncontributory. OPERATION: Exploratory laparotomy. DISCHARGE CONDITION: Stable. Vitals at the time of discharge are stable. PLAN ON DISCHARGE: The patient is discharged home in stable condition with instructions regarding activity, diet and followup appointment.
== END 2020-08-11 16:05 | disposition home or self-care (01) ==
LOC: ED 20:21 → OR 08-11 02:00 → 4N 08-11 02:00